=== PATIENT | female | born 1995 | race Caucasian/White ===

== ENCOUNTER 2018-05-21 21:02 | Emergency (ER) | payer OTHER ==
--- NOTE | 2018-05-21 21:10 | PDOC ---
Rapid Medical Evaluation Time Seen by Provider: 05/21/18 21:08 Medical Evaluation: 05/21/18 21:09 I have performed a brief in-person evaluation of the patient. The patient presents with a chief complaint of: vaginal irritation after using lysol wipe to wipe vagina accidentally. Pertinent physical exam findings. NAD even and unlabored breathing non tender abdomen I have ordered the following. The patient will proceed to the ED for further evaluation.
[2018-05-21 21:22] VITALS: BP 124/70; PULSE 101; TEMP 98.2; BMI 22.8
[2018-05-21 22:15] LABS: URINE APPEARANCE SLCLOUDY; URINE BILIRUBIN NEGATIVE (<2.0 mg/dL); URINE COLOR STRAW; URINE GLUCOSE (UA) NEGATIVE (NEGATIVE); URINE KETONE NEGATIVE (NEGATIVE); URINE LEUK ESTERASE 2+ (NEGATIVE); URINE NITRITE NEGATIVE (NEGATIVE); URINE PROTEIN NEGATIVE (NEGATIVE); URINE UROBILINOGEN NEGATIVE mg/dL (0.2-1.0)
[2018-05-21 22:21] LABS: EPI CELLS RARE /HPF (FEW); URINE BACTERIA RARE /hpf (NONE SEEN)
--- NOTE | 2018-05-21 22:41 | PDOC ---
History of Present Illness - General Chief Complaint: Vaginal Sxs Stated Complaint: Vaginal Sxs Time Seen by Provider: 05/21/18 21:08 History Source: Patient - History of Present Illness Initial Comments: 05/21/18 22:44 23 year old female with vaginal irritation after accidentally wiping vaginal area with lysol this morning, denies urinary symptoms/ patient reports that she bought monistat and symptoms did not relieve itself LMP: apr 27, 2018 05/21/18 22:52 05/21/18 22:57 Past History - Past Medical History Allergies/Adverse Reactions: Allergies Allergy/AdvReac Type Severity Reaction Status Date / Time No Known Allergies Allergy Verified 05/21/18 21:11 Home Medications: Ambulatory Orders Cod Liver Oil/Zinc Oxide [Desitin Diaper Rash Oint -] 1 applic TP BID #1 tube COPD: No - Immunization History Immunization Up to Date: Yes - Suicide/Smoking/Psychosocial Hx Smoking History: Never smoked Have you smoked in the past 12 months: No Information on smoking cessation initiated: No Hx Alcohol Use: No Drug/Substance Use Hx: No Review of Systems - Review of Systems Able to Perform ROS?: Yes Is the patient limited Micronesian proficient: No Constitutional: No: Symptoms Reported, See HPI, Chills, Diaphoresis, Fever, Loss of Appetite, Malaise, Night Sweats, Weakness, Weight Stable, Unintentional Wgt. Loss, Unexplained wgt Loss, Other *Physical Exam - Vital Signs Last Vital Signs Temp Pulse Resp BP Pulse Ox 98.2 F 101 H 16 124/70 100 05/21/18 21:09 05/21/18 21:09 05/21/18 21:09 05/21/18 21:09 05/21/18 21:09 - Physical Exam Female Pelvic Exam: positive: other (vaginal area erythema, cream in vaginal canal) Gastrointestinal/Abdominal: positive: Normal Bowel Sounds, Soft. negative: Tender Musculoskeletal: positive: Normal Inspection. negative: CVA Tenderness Moderate Sedation - Procedure Monitoring Vital Signs: Procedure Monitoring Vital Signs Temperature 98.2 F 05/21/18 21:09 Pulse Rate 101 H 05/21/18 21:09 Respiratory Rate 16 05/21/18 21:09 Blood Pressure 124/70 05/21/18 21:09 O2 Sat by Pulse Oximetry (%) 100 05/21/18 21:09 ED Treatment Course - ADDITIONAL ORDERS Additional order review: Laboratory Results 05/21/18 21:55 Urine Color Straw Urine Appearance Slcloudy Urine pH 6.0 Ur Specific [place] 1.004 L Urine Protein Negative Urine Glucose (UA) Negative Urine Ketones Negative Urine Blood Negative Urine Nitrite Negative Urine Bilirubin Negative Urine Urobilinogen Negative Ur Leukocyte Esterase 2+ H Urine WBC (Auto) 7 Urine RBC (Auto) 1 Ur Epithelial Cells Rare Urine Bacteria Rare Progress Note - Progress Note Progress Note: A: vaginal irritation p: ua : + 2 leuks. no urinary symptoms will await culture urine culture *DC/Admit/Observation/Transfer Diagnosis at time of Disposition: Vaginal irritation - Discharge Dispostion Disposition: HOME - Referrals - Patient Instructions Printed Discharge Instructions: DI for Vaginal Discharge Additional Instructions: rinse with cool water Apply desitin to the vaginal area follow up with your doctor - Post Discharge Activity Forms/Work/School Notes: Back to Work
== END 2018-05-21 22:50 | disposition home or self-care (01) ==
LOC: JER 21:02
DX: N89.8 Other specified noninflammatory disorders of vagina (principal)
CPT/HCPCS: 81003; 81015; 84703; 87086; 99282-25